=== PATIENT | female | born 2000 | race Caucasian/White ===

== ENCOUNTER → 2020-10-22 | Emergency (ER) | payer BC ==
[~2020-10-22] VITALS: Ht 160 cm; Wt 56.7 kg
== END | disposition left against medical advice (07) ==
LOC: ER 20:29 → EMR PED 20:29
DX: K92.0 Hematemesis (principal); Z03.818 Encounter for observation for suspected exposure to other biological agents ruled out; R19.7 Diarrhea, unspecified; R53.81 Other malaise